=== PATIENT | female | born 1965 | race Hispanic/Latino ===

== ENCOUNTER → 2019-03-12 | Outpatient (CLI) | payer OTHER ==
--- NOTE | 2019-03-12 14:18 | Diagnostic Imaging Report ---
EXAMINATION: Transabdominal pelvic ultrasound. CLINICAL INDICATION: Periumbilical pain COMPARISON: None DISCUSSION: Transverse and sagittal transabdominal images were obtained of the pelvis. The uterus is anteflexed and normal in size measuring 7.3 x 4.1 x 4.9 cm. The endometrial stripe is homogeneous, normal in thickness and measures 0.3 centimeters. In the anterior uterine fundus there is a shadowing calcification measuring approximate 5 mm in greatest dimension. The ovaries are normal in size and echogenicity. The right ovary measures 1.8 x 1.5 x 1.5 centimeters. The left ovary measures 1.6 x 1.4 x 1.6 centimeters. No free fluid or pelvic masses are seen. IMPRESSION: Uterine fundal calcification likely represents a degenerated/involuted leiomyoma. Otherwise unremarkable transabdominal pelvic ultrasound. Signed by: Dr. Jessee Montgomery M.D. on 03/12/2019 2:15 PM
== END ==
LOC: MAMMO 11:26
PROVIDERS: ATTEND Family Medicine
DX: Z12.31 Encounter for screening mammogram for malignant neoplasm of breast (principal); R10.33 Periumbilical pain
CPT/HCPCS: 76856; 77067